=== PATIENT | female | born 1950 | race Caucasian/White ===

== ENCOUNTER → 2020-03-03 | Outpatient (CLI) | payer MEDICARE ==
--- NOTE | 2020-03-03 14:00 | ECHOF ---
Referral Reason:Cardiac Murmur, RO1.1 MEASUREMENTS -------- HEIGHT: 157.5 cm WEIGHT: 102.1 kg BP: 131/67 RVIDd: 2.8 cm (< 3.3) IVSd: 1.1 cm (0.6 - 1.1) LVIDd: 4.1 cm (3.9 - 5.3) LVPWd: 1.1 cm (0.6 - 1.1) IVSs: 1.5 cm LVIDs: 2.3 cm LVPWs: 1.5 cm LA Diam: 3.3 cm (2.7 - 3.8) LAESV Index (A-L): 24.21 ml/m Ao Diam: 3.0 cm (2.0 - 3.7) AV Cusp: 1.7 cm (1.5 - 2.6) MV EXCURSION: 9.718 mm (> 18.000) MV EF SLOPE: 47 mm/s (70 - 150) EPSS: 0.6 cm MV E Thierry: 1.28 m/s MV DecT: 346 ms MV A Thierry: 1.62 m/s MV E/A Ratio: 0.79 AV maxP.60 mmHg AV meanP.10 mmHg RAP: 5.00 mmHg RVSP: 36.41 mmHg FINDINGS -------- Sinus rhythm. This was a technically adequate study. The left ventricular size is normal. There is borderline concentric left ventricular hypertrophy. Overall left ventricular systolic function is normal with, an EF between 60 - 65 %. The right ventricle is normal in size. The global wall thickness of the right ventricle is mildly e nlarged. Normal LA size by volume 22+/-6 ml/m2. The right atrium is normal in size. Aortic valve is trileaflet and is mildly thickened. There is mild aortic stenosis present. Peak/m toma gradient across the Aortic Valve is 21.60mmHg / 12.10mmHg. The mitral valve leaflets are mildly thickened. Mild mitral annular calcification present. The p eak and mean MV gradients are 10.71mmHg 3.19mmHg as measured by doppler. Mild tricuspid regurgitation present. There is mild pulmonary hypertension. The right ventricular systolic pressure, as measured by Doppler, is 36.41mmHg. Trace/mild (physiologic) pulmonic regurgitation. The aortic root size is normal. Normal inferior vena cava with normal inspiratory collapse consistent with estimated right atrial pre ssure of 5 mmHg. There is no pericardial effusion. CONCLUSIONS -------- 1. The left ventricular size is normal. 2. There is borderline concentric left ventricular hypertrophy. 3. Overall left ventricular systolic function is normal with, an EF between 60 - 65 %. 4. The right ventricle is normal in size. 5. The global wall thickness of the right ventricle is mildly enlarged. 6. Normal LA size by volume 22+/-6 ml/m2. 7. Aortic valve is trileaflet and is mildly thickened. 8. There is mild aortic stenosis present. 9. Peak/mean gradient across the Aortic Valve is 21.60mmHg / 12.10mmHg. 10. The mitral valve leaflets are mildly thickened. 11. Mild mitral annular calcification present. 12. The peak and mean MV gradients are 10.71mmHg 3.19mmHg as measured by doppler. 13. Mild tricuspid regurgitation present. 14. There is mild pulmonary hypertension. 15. The right ventricular systolic pressure, as measured by Doppler, is 36.41mmHg. 16. Trace/mild (physiologic) pulmonic regurgitation. 17. There is no pericardial effusion. 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
== END | disposition home or self-care (01) ==
LOC: RADECHMAIN 11:25
PROVIDERS: ATTEND Family Medicine
DX: I27.20 Pulmonary hypertension, unspecified (principal); I37.1 Nonrheumatic pulmonary valve insufficiency; I08.3 Combined rheumatic disorders of mitral, aortic and tricuspid valves
CPT/HCPCS: 93306

== ENCOUNTER 2023-09-16 18:55 | Inpatient (IN) | payer MEDICARE ==
[2023-09-16] MEDS: SODIUM CHLORIDE 0.9% 1,000 ML IV STA (19:50)
[2023-09-16 20:00] LABS: Basophils % (A) 0 %; Eosinophils % (A) 0 %; HCT 45.8 % (34.0-46.0); HGB 14.8 gm/dL (11.4-16.0); Hypochromasia Slight; Lymphocytes # (A) 0.9 k/uL (1.0-4.8); Lymphocytes % (A) 6 %; MCH 32.8 pg (25.0-35.0); MCHC 32.4 g/dL (31.0-37.0); MCV 101.3 fL (80.0-100.0); Mean Platelet Volume 8.3; Monocytes # (A) 0.7 k/uL (0-1.0); Monocytes % (A) 5 %; Neutrophils % (A) 87 %; Platelet Count 236 k/uL (150-450); RBC 4.52 m/uL (3.80-5.40); RDW 12.8 % (11.5-15.5); WBC 13.7 k/uL (3.8-10.6)
[2023-09-16 20:14] LABS: ALT 50 U/L (4-34); African American GFR (CKD) >90 (>60 ml/min/1.73 sqM); Albumin 4.4 g/dL (3.5-5.0); Anion Gap 8 mmol/L; Blood Urea Nitrogen 16 mg/dL (7-17); Calcium 9.7 mg/dL (8.4-10.2); Carbon Dioxide 23 mmol/L (22-30); Chloride 111 mmol/L (98-107); Glucose 145 mg/dL (74-99); Non-African American GFR(CKD) 86 (>60 ml/min/1.73 sqM); Sodium 142 mmol/L (137-145); Total Bilirubin 2.5 mg/dL (0.2-1.3); Total Protein 6.9 g/dL (6.3-8.2)
[2023-09-16 20:23] LABS: INR 1.1 (<1.2); Prothrombin Time 11.5 sec (10.0-12.5)
[2023-09-16 20:25] LABS: AST 426 U/L (14-36); Alkaline Phosphatase 57 U/L (38-126); Phosphorus 2.2 mg/dL (2.5-4.5); Potassium 3.3 mmol/L (3.5-5.1)
[2023-09-16] MEDS ORDERED: Potassium Replacement Protocol 1 EACH MISC MISCELLANE PRN (20:36)
--- NOTE | 2023-09-16 20:41 | XR ---
EXAMINATION TYPE: XR chest 2V DATE OF EXAM: 09/16/2023 8:29 PM CLINICAL INDICATION:Female, 73 years old with history of Weakness; [facility] COMPARISON: None. TECHNIQUE: XR chest 2V Frontal and lateral views of the chest. FINDINGS: Right hemidiaphragm is smooth in the right costophrenic angle is sharp. Left hemidiaphragm is smooth left costophrenic angle is sharp. Lungs/Pleura: There is no evidence of pleural effusion, focal consolidation, or pneumothorax. Pulmonary vascularity: Unremarkable. Heart/mediastinum: Cardiomediastinal silhouette is unremarkable. Musculoskeletal: No acute osseous pathology. Other findings: None Lines/Tubes: IMPRESSION: No acute cardiopulmonary disease/process.
[2023-09-16] MEDS: POTASSIUM CHLORIDE ER 20 MEQ TAB.ER PO SCH (20:49)
[2023-09-16] MEDS ORDERED: Phosphorus Replacement Protoco 1 EACH MISC MISCELLANE PRN (20:57)
[2023-09-16 21:22] LABS: Creatine Kinase 25496 U/L (30-135)
--- NOTE | 2023-09-16 21:32 | XR ---
EXAMINATION TYPE: XR knee complete bilateral DATE OF EXAM: 09/16/2023 8:29 PM CLINICAL INDICATION:Female, 73 years old with history of fall; [facility]. Initial encounter. COMPARISON: None. TECHNIQUE: XR knee complete bilateral; examined in Frontal, lateral and oblique projections. FINDINGS: No evidence of any acute osseous pathology, soft tissue swelling, or joint effusion is no jonathan. IMPRESSION: 1. No acute osseous pathology. 2. No significant osteoarthritic changes.
[2023-09-16] MEDS: POTAS-SOD-PHOS 278-164-250 MG 1 EACH PACKET PO ONE (22:06)
[2023-09-16] MEDS: SODIUM CHLORIDE 0.9% 1,000 ML IV SCH (22:08)
[2023-09-16] MEDS: SODIUM CHLORIDE 0.9% 1,000 ML IV ONE (22:09)
[2023-09-16] MEDS ORDERED: NALOXONE 0.4 MG/ML 1 ML VIAL IV PRN (22:15)
--- NOTE | 2023-09-16 22:18 | ED ---
General Adult HPI - General Chief complaint: Fall Stated complaint: Fall, isma, nausea, vomiting, general weakness Time Seen by Provider: 09/16/23 19:23 Source: patient Mode of arrival: wheelchair Limitations: no limitations - History of Present Illness Initial comments: 73-year-old female with history of hypertension and hyperlipidemia presenting with chief complaint of generalized weakness. She is accompanied by her son. She reports that she got on her hands and knees while doing tasks around the house and then was unable to get up on her own. Her was also unable to get her up on his own. She was on the ground for approximately 20 hours before her son was contacted who came to the home and got her up. Since then her legs have felt weak, she did fall forward while in the parking lot, she fell onto her knees and did not hit her head. No loss of consciousness or blood thinners. She also admits to dizziness. She denies any chest pain or difficulty breathing. - Related Data Home Medications Medication Instructions Recorded Confirmed Aspirin EC [Ecotrin Low Dose] 81 mg PO DAILY 09/17/23 09/17/23 Atorvastatin [Lipitor] 40 mg PO HS 09/17/23 09/17/23 diphenhydrAMINE HCL [Benadryl] 50 mg PO BID 09/17/23 09/17/23 Previous Rx's Medication Instructions Recorded Losartan [Cozaar] 25 mg PO DAILY #90 tab 09/19/23 Metoprolol Tartrate [Lopressor] 12.5 mg PO BID #90 tab 09/19/23 Allergies Allergy/AdvReac Type Severity Reaction Status Date / Time Beef Containing Products AdvReac Diarrhea Verified 09/17/23 09:38 [Beef] Review of Systems ROS Statement: Those systems with pertinent positive or pertinent negative responses have been documented in the HPI. ROS Other: All systems not noted in ROS Statement are negative. Past Medical History Past Medical History: Hyperlipidemia, Hypertension History of Any Multi-Drug Resistant Organisms: None Reported Past Surgical History: Tonsillectomy Past Psychological History: No Psychological Hx Reported Smoking Status: Never smoker Past Alcohol Use History: Occasional Past Drug Use History: None Reported General Exam Limitations: no limitations General appearance: alert, in no apparent distress Head exam: Present: atraumatic, normocephalic Eye exam: Present: normal appearance, EOMI Neck exam: Present: normal inspection. Absent: meningismus Respiratory exam: Present: normal lung sounds bilaterally. Absent: respiratory distress, wheezes, rales, rhonchi, stridor Cardiovascular Exam: Present: regular rate, normal rhythm, normal heart sounds. Absent: systolic murmur, diastolic murmur, rubs, gallop, clicks Neurological exam: Present: alert, oriented X3 Psychiatric exam: Present: normal affect, normal mood Skin exam: Present: normal color Course Vital Signs 09/16/23 09/16/23 09/16/23 19:03 19:56 20:00 Temperature 97.8 F Pulse Rate 100 89 97 Respiratory 20 16 18 Rate Blood Pressure 109/68 117/71 117/71 O2 Sat by Pulse 95 93 L 95 Oximetry 09/16/23 09/16/23 09/16/23 21:00 22:00 23:00 Temperature Pulse Rate 98 95 94 Respiratory 16 16 18 Rate Blood Pressure 127/73 138/87 134/89 O2 Sat by Pulse 95 94 L 94 L Oximetry 09/17/23 09/17/23 09/17/23 00:00 01:00 02:00 Temperature Pulse Rate 90 90 88 Respiratory 16 16 16 Rate Blood Pressure 144/82 142/92 135/80 O2 Sat by Pulse 94 L 95 93 L Oximetry 09/17/23 09/17/23 09/17/23 03:00 03:52 04:30 Temperature 97.7 F Pulse Rate 86 Respiratory 18 16 Rate Blood Pressure 106/61 O2 Sat by Pulse 93 L Oximetry 09/17/23 09/17/23 09/17/23 06:53 09:44 11:17 Temperature 98.1 F Pulse Rate 82 78 77 Respiratory 18 18 18 Rate Blood Pressure 129/87 136/52 O2 Sat by Pulse 94 L 94 L 95 Oximetry 09/17/23 12:14 Temperature 98 F Pulse Rate 78 Respiratory 18 Rate Blood Pressure 140/81 O2 Sat by Pulse 96 Oximetry Medical Decision Making - Medical Decision Making Was pt. sent in by a medical professional or institution (, PA, PREPARATION ROOM WORKER, urgent care, hospital, or long-term...) When possible be specific @ -No Did you speak to anyone other than the patient for history (EMS, parent, family, police, friend...)? What history was obtained from this source @ -History supplemented by the patient's son Did you review nursing and triage notes (agree or disagree)? Why? @ -I reviewed and agree with nursing and triage notes Were old charts reviewed (outside hosp., previous admission, EMS record, old EKG, old radiological studies, urgent care reports/EKG's, long-term records)? Report findings @ -No old charts were reviewed Differential Diagnosis (chest pain, altered mental status, abdominal pain women, abdominal pain men, vaginal bleeding, weakness, fever, dyspnea, syncope, headache, dizziness, GI bleed, back pain, seizure, CVA, palpatations, mental health, musculoskeletal)? @ -MDM Differential Weakness: Rhabdomyolysis, hypoglycemia, shock, sepsis, hyponatremia, anemia, infection, IA, ETOH, adverse medicine reaction, overdose, stroke. ... This is not meant to be an all-inclusive list EKG interpreted by me (3pts min.). @ -EKG shows sinus rhythm ventricular rate 95. WI interval 128. QRS 133. QT 365. QTc 418 X-rays interpreted by me (1pt min.). @ -Chest x-ray shows no acute process Knee x-ray shows no acute osseous pathology. No significant osteoarthritic changes CT interpreted by me (1pt min.). @ -None done U/S interpreted by me (1pt. min.). @ -None done What testing was considered but not performed or refused? (CT, X-rays, U/S, labs)? Why? @ -None What meds were considered but not given or refused? Why? @ -None Did you discuss the management of the patient with other professionals (pr ofessionals i.e. , PA, PREPARATION ROOM WORKER, lab, RT, psych nurse, social welfare research worker, club manager, teacher, safety instruction police officer, rn case management)? Give summary @ -I spoke with Dr. Sanchez, accepted admission Was smoking cessation discussed for >3mins.? @ -No Was critical care preformed (if so, how long)? @ -No Were there social determinants of health that impacted care today? How? (Homelessness, low income, unemployed, alcoholism, drug addiction, transportation, low edu. Level, literacy, decrease access to med. care, long term, rehab)? @ -No Was there de-escalation of care discussed even if they declined (Discuss DNR or withdrawal of care, Hospice)? DNR status @ -No What co-morbidities impacted this encounter? (DM, HTN, Smoking, COPD, CAD, Cancer, CVA, ARF, Chemo, Hep., AIDS, mental health diagnosis, sleep apnea, morbid obesity)? @ -Hypertension and hyperlipidemia Was patient admitted / discharged? Hospital course, mention meds given and route, prescriptions, significant lab abnormalities, going to OR and other pertinent info. @ -73-year-old female presenting with chief complaint of weakness after being down on the ground for 20 hours. Patient had lowered herself to the ground to do some tasks around the house but was unable to get back up. History and physical exam are conducted. Creatinine kinase 25,496. Lactic acid 4.1. Troponin 1.700. Patient is having no chest pain and EKG shows no ST deviation, likely secondary to rhabdomyolysis. Bilirubin 2.5 AST 426 ALT 50. Urine shows 1 RBC. GFR is 86, BUN 16 creatinine 0.69. Potassium 3.3. Patient was given 1 L IV fluid bolus and started on lactic Ringer's at 200 mL/h. She is also given oral potassium replacement. She was given pain medication. She will require admission for rhabdomyolysis, she is agreeable with this plan. I discussed this case with my attending Dr. Carlos Undiagnosed new problem with uncertain prognosis? @ -No Drug Therapy requiring intensive monitoring for toxicity (Heparin, Nitro, Insulin, Cardizem)? @ -No Were any procedures done? @ -No Diagnosis/symptom? @ -Rhabdomyolysis Acute, or Chronic, or Acute on Chronic? @ -Acute Uncomplicated (without systemic symptoms) or Complicated (systemic symptoms)? @ -Complicated Side effects of treatment? @ -No Exacerbation, Progression, or Severe Exacerbation? @ -No Poses a threat to life or bodily function? How? (Chest pain, USA, IA, pneumonia, PE, COPD, DKA, ARF, appy, cholecystitis, CVA, Diverticulitis, Homicidal, Suicidal, threat to staff... and all critical care pts) @ -Yes - Lab Data Result diagrams: 09/19/23 06:47 09/19/23 06:47 Lab Results 09/16/23 09/16/23 09/16/23 Range/Units 01:02 19:44 19:44 WBC 13.7 H (3.8-10.6) k/uL RBC 4.52 (3.80-5.40) m/uL Hgb 14.8 (11.4-16.0) gm/dL Hct 45.8 (34.0-46.0) % MCV 101.3 H (80.0-100.0) fL MCH 32.8 (25.0-35.0) pg MCHC 32.4 (31.0-37.0) g/dL RDW 12.8 (11.5-15.5) % Plt Count 236 (150-450) k/uL MPV 8.3 Neutrophils % 87 % Lymphocytes % 6 % Monocytes % 5 % Eosinophils % 0 % Basophils % 0 % Neutrophils # 12.0 H (1.3-7.7) k/uL Lymphocytes # 0.9 L (1.0-4.8) k/uL Monocytes # 0.7 (0-1.0) k/uL Eosinophils # 0.0 (0-0.7) k/uL Basophils # 0.0 (0-0.2) k/uL Hypochromasia Slight Macrocytosis PT 11.5 (10.0-12.5) sec INR 1.1 (<1.2) APTT 22.0 (22.0-30.0) sec Sodium (137-145) mmol/L Potassium (3.5-5.1) mmol/L Chloride (98-107) mmol/L Carbon Dioxide (22-30) mmol/L Anion Gap mmol/L BUN (7-17) mg/dL Creatinine (0.52-1.04) mg/dL Est GFR (CKD-EPI)AfAm (>60 ml/min/1.73 sqM) Est GFR (CKD-EPI)NonAf (>60 ml/min/1.73 sqM) Glucose (74-99) mg/dL Lactic Ac Sepsis Rflx Plasma Lactic Acid Maik (0.7-2.0) mmol/L Calcium (8.4-10.2) mg/dL Phosphorus (2.5-4.5) mg/dL Magnesium (1.6-2.3) mg/dL Total Bilirubin (0.2-1.3) mg/dL AST (14-36) U/L ALT (4-34) U/L Alkaline Phosphatase (38-126) U/L Creatine Kinase (30-135) U/L Total Creatine Kinase (30-223) u/L CK-MM (CK-3) (96.7-100.0) % CK-MB (CK-2) (0.0-3.3) % CK-BB (CK-1) (0.0) % Troponin I (0.000-0.034) ng/mL Total Protein (6.3-8.2) g/dL Albumin (3.5-5.0) g/dL Urine Color Yellow Urine Appearance Cloudy H (Clear) Urine pH 6.0 (5.0-8.0) Ur Specific [place] 1.029 (1.001-1.035) Urine Protein 1+ H (Negative) Urine Glucose (UA) Trace H (Negative) Urine Ketones Trace H (Negative) Urine Blood Large H (Negative) Urine Nitrite Negative (Negative) Urine Bilirubin Negative (Negative) Urine Urobilinogen <2.0 (<2.0) mg/dL Ur Leukocyte Esterase Negative (Negative) Urine RBC 1 (0-5) /hpf Urine WBC 4 (0-5) /hpf Ur Squamous Epith Cells 8 H (0-4) /hpf Urine Bacteria Rare H (None) /hpf Hyaline Casts 3 H (0-2) /lpf Urine Mucus Few H (None) /hpf 09/16/23 09/16/23 09/16/23 Range/Units 19:44 19:44 19:44 WBC (3.8-10.6) k/uL RBC (3.80-5.40) m/uL Hgb (11.4-16.0) gm/dL Hct (34.0-46.0) % MCV (80.0-100.0) fL MCH (25.0-35.0) pg MCHC (31.0-37.0) g/dL RDW (11.5-15.5) % Plt Count (150-450) k/uL MPV Neutrophils % % Lymphocytes % % Monocytes % % Eosinophils % % Basophils % % Neutrophils # (1.3-7.7) k/uL Lymphocytes # (1.0-4.8) k/uL Monocytes # (0-1.0) k/uL Eosinophils # (0-0.7) k/uL Basophils # (0-0.2) k/uL Hypochromasia Macrocytosis PT (10.0-12.5) sec INR (<1.2) APTT (22.0-30.0) sec Sodium 142 (137-145) mmol/L Potassium 3.3 L (3.5-5.1) mmol/L Chloride 111 H (98-107) mmol/L Carbon Dioxide 23 (22-30) mmol/L Anion Gap 8 mmol/L BUN 16 (7-17) mg/dL Creatinine 0.69 (0.52-1.04) mg/dL Est GFR (CKD-EPI)AfAm >90 (>60 ml/min/1.73 sqM) Est GFR (CKD-EPI)NonAf 86 (>60 ml/min/1.73 sqM) Glucose 145 H (74-99) mg/dL Lactic Ac Sepsis Rflx Plasma Lactic Acid Maik 4.1 H* (0.7-2.0) mmol/L Calcium 9.7 (8.4-10.2) mg/dL Phosphorus 2.2 L (2.5-4.5) mg/dL Magnesium 2.0 (1.6-2.3) mg/dL Total Bilirubin 2.5 H (0.2-1.3) mg/dL AST 426 H (14-36) U/L ALT 50 H (4-34) U/L Alkaline Phosphatase 57 (38-126) U/L Creatine Kinase 94712 H* (30-135) U/L Total Creatine Kinase (30-223) u/L CK-MM (CK-3) (96.7-100.0) % CK-MB (CK-2) (0.0-3.3) % CK-BB (CK-1) (0.0) % Troponin I 1.700 H* (0.000-0.034) ng/mL Total Protein 6.9 (6.3-8.2) g/dL Albumin 4.4 (3.5-5.0) g/dL Urine Color Urine Appearance (Clear) Urine pH (5.0-8.0) Ur Specific [place] (1.001-1.035) Urine Protein (Negative) Urine Glucose (UA) (Negative) Urine Ketones (Negative) Urine Blood (Negative) Urine Nitrite (Negative) Urine Bilirubin (Negative) Urine Urobilinogen (<2.0) mg/dL Ur Leukocyte Esterase (Negative) Urine RBC (0-5) /hpf Urine WBC (0-5) /hpf Ur Squamous Epith Cells (0-4) /hpf Urine Bacteria (None) /hpf Hyaline Casts (0-2) /lpf Urine Mucus (None) /hpf 09/16/23 09/16/23 09/17/23 Range/Units 21:21 23:00 00:16 WBC (3.8-10.6) k/uL RBC (3.80-5.40) m/uL Hgb (11.4-16.0) gm/dL Hct (34.0-46.0) % MCV (80.0-100.0) fL MCH (25.0-35.0) pg MCHC (31.0-37.0) g/dL RDW (11.5-15.5) % Plt Count (150-450) k/uL MPV Neutrophils % % Lymphocytes % % Monocytes % % Eosinophils % % Basophils % % Neutrophils # (1.3-7.7) k/uL Lymphocytes # (1.0-4.8) k/uL Monocytes # (0-1.0) k/uL Eosinophils # (0-0.7) k/uL Basophils # (0-0.2) k/uL Hypochromasia Macrocytosis PT (10.0-12.5) sec INR (<1.2) APTT (22.0-30.0) sec Sodium (137-145) mmol/L Potassium (3.5-5.1) mmol/L Chloride (98-107) mmol/L Carbon Dioxide (22-30) mmol/L Anion Gap mmol/L BUN (7-17) mg/dL Creatinine (0.52-1.04) mg/dL Est GFR (CKD-EPI)AfAm (>60 ml/min/1.73 sqM) Est GFR (CKD-EPI)NonAf (>60 ml/min/1.73 sqM) Glucose (74-99) mg/dL Lactic Ac Sepsis Rflx Y Plasma Lactic Acid Maik (0.7-2.0) mmol/L Calcium (8.4-10.2) mg/dL Phosphorus (2.5-4.5) mg/dL Magnesium (1.6-2.3) mg/dL Total Bilirubin (0.2-1.3) mg/dL AST (14-36) U/L ALT (4-34) U/L Alkaline Phosphatase (38-126) U/L Creatine Kinase 34759 H* (30-135) U/L Total Creatine Kinase (30-223) u/L CK-MM (CK-3) (96.7-100.0) % CK-MB (CK-2) (0.0-3.3) % CK-BB (CK-1) (0.0) % Troponin I 1.580 H* (0.000-0.034) ng/mL Total Protein (6.3-8.2) g/dL Albumin (3.5-5.0) g/dL Urine Color Urine Appearance (Clear) Urine pH (5.0-8.0) Ur Specific [place] (1.001-1.035) Urine Protein (Negative) Urine Glucose (UA) (Negative) Urine Ketones (Negative) Urine Blood (Negative) Urine Nitrite (Negative) Urine Bilirubin (Negative) Urine Urobilinogen (<2.0) mg/dL Ur Leukocyte Esterase (Negative) Urine RBC (0-5) /hpf Urine WBC (0-5) /hpf Ur Squamous Epith Cells (0-4) /hpf Urine Bacteria (None) /hpf Hyaline Casts (0-2) /lpf Urine Mucus (None) /hpf 09/17/23 09/17/23 09/17/23 Range/Units 00:16 00:16 06:48 WBC (3.8-10.6) k/uL RBC (3.80-5.40) m/uL Hgb (11.4-16.0) gm/dL Hct (34.0-46.0) % MCV (80.0-100.0) fL MCH (25.0-35.0) pg MCHC (31.0-37.0) g/dL RDW (11.5-15.5) % Plt Count (150-450) k/uL MPV Neutrophils % % Lymphocytes % % Monocytes % % Eosinophils % % Basophils % % Neutrophils # (1.3-7.7) k/uL Lymphocytes # (1.0-4.8) k/uL Monocytes # (0-1.0) k/uL Eosinophils # (0-0.7) k/uL Basophils # (0-0.2) k/uL Hypochromasia Macrocytosis PT (10.0-12.5) sec INR (<1.2) APTT (22.0-30.0) sec Sodium 140 (137-145) mmol/L Potassium 3.5 (3.5-5.1) mmol/L Chloride 113 H (98-107) mmol/L Carbon Dioxide 25 (22-30) mmol/L Anion Gap 2 mmol/L BUN 16 (7-17) mg/dL Creatinine 0.51 L (0.52-1.04) mg/dL Est GFR (CKD-EPI)AfAm >90 (>60 ml/min/1.73 sqM) Est GFR (CKD-EPI)NonAf >90 (>60 ml/min/1.73 sqM) Glucose 125 H (74-99) mg/dL Lactic Ac Sepsis Rflx Plasma Lactic Acid Maik 1.3 (0.7-2.0) mmol/L Calcium 8.4 (8.4-10.2) mg/dL Phosphorus 3.3 (2.5-4.5) mg/dL Magnesium (1.6-2.3) mg/dL Total Bilirubin 1.7 H (0.2-1.3) mg/dL AST 315 H (14-36) U/L ALT 52 H (4-34) U/L Alkaline Phosphatase 45 (38-126) U/L Creatine Kinase 69001 H* (30-135) U/L Total Creatine Kinase (30-223) u/L CK-MM (CK-3) (96.7-100.0) % CK-MB (CK-2) (0.0-3.3) % CK-BB (CK-1) (0.0) % Troponin I (0.000-0.034) ng/mL Total Protein 5.5 L (6.3-8.2) g/dL Albumin 3.3 L (3.5-5.0) g/dL Urine Color Urine Appearance (Clear) Urine pH (5.0-8.0) Ur Specific [place] (1.001-1.035) Urine Protein (Negative) Urine Glucose (UA) (Negative) Urine Ketones (Negative) Urine Blood (Negative) Urine Nitrite (Negative) Urine Bilirubin (Negative) Urine Urobilinogen (<2.0) mg/dL Ur Leukocyte Esterase (Negative) Urine RBC (0-5) /hpf Urine WBC (0-5) /hpf Ur Squamous Epith Cells (0-4) /hpf Urine Bacteria (None) /hpf Hyaline Casts (0-2) /lpf Urine Mucus (None) /hpf 09/17/23 09/18/23 09/18/23 Range/Units 06:48 06:24 06:24 WBC 14.1 H 9.6 (3.8-10.6) k/uL RBC 3.94 3.63 L (3.80-5.40) m/uL Hgb 12.9 12.1 (11.4-16.0) gm/dL Hct 41.9 37.6 (34.0-46.0) % MCV 106.6 H D 103.5 H (80.0-100.0) fL MCH 32.8 33.2 (25.0-35.0) pg MCHC 30.8 L 32.0 (31.0-37.0) g/dL RDW 12.5 12.6 (11.5-15.5) % Plt Count 211 190 (150-450) k/uL MPV 8.3 9.0 Neutrophils % % Lymphocytes % % Monocytes % % Eosinophils % % Basophils % % Neutrophils # (1.3-7.7) k/uL Lymphocytes # (1.0-4.8) k/uL Monocytes # (0-1.0) k/uL Eosinophils # (0-0.7) k/uL Basophils # (0-0.2) k/uL Hypochromasia Marked Moderate Macrocytosis Moderate Slight PT (10.0-12.5) sec INR (<1.2) APTT (22.0-30.0) sec Sodium (137-145) mmol/L Potassium (3.5-5.1) mmol/L Chloride (98-107) mmol/L Carbon Dioxide (22-30) mmol/L Anion Gap mmol/L BUN (7-17) mg/dL Creatinine (0.52-1.04) mg/dL Est GFR (CKD-EPI)AfAm (>60 ml/min/1.73 sqM) Est GFR (CKD-EPI)NonAf (>60 ml/min/1.73 sqM) Glucose (74-99) mg/dL Lactic Ac Sepsis Rflx Plasma Lactic Acid Maik (0.7-2.0) mmol/L Calcium (8.4-10.2) mg/dL Phosphorus (2.5-4.5) mg/dL Magnesium (1.6-2.3) mg/dL Total Bilirubin (0.2-1.3) mg/dL AST (14-36) U/L ALT (4-34) U/L Alkaline Phosphatase (38-126) U/L Creatine Kinase (30-135) U/L Total Creatine Kinase 4740 H (30-223) u/L CK-MM (CK-3) 100.0 (96.7-100.0) % CK-MB (CK-2) 0.0 (0.0-3.3) % CK-BB (CK-1) 0.0 (0.0) % Troponin I (0.000-0.034) ng/mL Total Protein (6.3-8.2) g/dL Albumin (3.5-5.0) g/dL Urine Color Urine Appearance (Clear) Urine pH (5.0-8.0) Ur Specific [place] (1.001-1.035) Urine Protein (Negative) Urine Glucose (UA) (Negative) Urine Ketones (Negative) Urine Blood (Negative) Urine Nitrite (Negative) Urine Bilirubin (Negative) Urine Urobilinogen (<2.0) mg/dL Ur Leukocyte Esterase (Negative) Urine RBC (0-5) /hpf Urine WBC (0-5) /hpf Ur Squamous Epith Cells (0-4) /hpf Urine Bacteria (None) /hpf Hyaline Casts (0-2) /lpf Urine Mucus (None) /hpf 09/18/23 Range/Units 06:24 WBC (3.8-10.6) k/uL RBC (3.80-5.40) m/uL Hgb (11.4-16.0) gm/dL Hct (34.0-46.0) % MCV (80.0-100.0) fL MCH (25.0-35.0) pg MCHC (31.0-37.0) g/dL RDW (11.5-15.5) % Plt Count (150-450) k/uL MPV Neutrophils % % Lymphocytes % % Monocytes % % Eosinophils % % Basophils % % Neutrophils # (1.3-7.7) k/uL Lymphocytes # (1.0-4.8) k/uL Monocytes # (0-1.0) k/uL Eosinophils # (0-0.7) k/uL Basophils # (0-0.2) k/uL Hypochromasia Macrocytosis PT (10.0-12.5) sec INR (<1.2) APTT (22.0-30.0) sec Sodium 139 (137-145) mmol/L Potassium 3.5 (3.5-5.1) mmol/L Chloride 108 H (98-107) mmol/L Carbon Dioxide 26 (22-30) mmol/L Anion Gap 5 mmol/L BUN 15 (7-17) mg/dL Creatinine 0.47 L (0.52-1.04) mg/dL Est GFR (CKD-EPI)AfAm >90 (>60 ml/min/1.73 sqM) Est GFR (CKD-EPI)NonAf >90 (>60 ml/min/1.73 sqM) Glucose 98 (74-99) mg/dL Lactic Ac Sepsis Rflx Plasma Lactic Acid Maik (0.7-2.0) mmol/L Calcium 8.6 (8.4-10.2) mg/dL Phosphorus (2.5-4.5) mg/dL Magnesium (1.6-2.3) mg/dL Total Bilirubin (0.2-1.3) mg/dL AST (14-36) U/L ALT (4-34) U/L Alkaline Phosphatase (38-126) U/L Creatine Kinase (30-135) U/L Total Creatine Kinase (30-223) u/L CK-MM (CK-3) (96.7-100.0) % CK-MB (CK-2) (0.0-3.3) % CK-BB (CK-1) (0.0) % Troponin I (0.000-0.034) ng/mL Total Protein (6.3-8.2) g/dL Albumin (3.5-5.0) g/dL Urine Color Urine Appearance (Clear) Urine pH (5.0-8.0) Ur Specific [place] (1.001-1.035) Urine Protein (Negative) Urine Glucose (UA) (Negative) Urine Ketones (Negative) Urine Blood (Negative) Urine Nitrite (Negative) Urine Bilirubin (Negative) Urine Urobilinogen (<2.0) mg/dL Ur Leukocyte Esterase (Negative) Urine RBC (0-5) /hpf Urine WBC (0-5) /hpf Ur Squamous Epith Cells (0-4) /hpf Urine Bacteria (None) /hpf Hyaline Casts (0-2) /lpf Urine Mucus (None) /hpf Disposition Clinical Impression: Rhabdomyolysis Disposition: ADMITTED IP TO THIS HOSP Condition: Stable Time of Disposition: 22:18
[2023-09-16] MEDS: ACETAMINOPHEN TAB 500 MG TAB PO STA (22:36)
[2023-09-16] MEDS: LACTATED RINGERS 1,000 ML IV SCH (23:34)
[2023-09-17] MEDS: MORPHINE SULFATE 2 MG/ML SYRINGE IVP STA (00:04)
[2023-09-17 01:29] LABS: Appearance,Urine Cloudy (Clear); Bacteria,Urine Rare /hpf; Bilirubin,Urine Negative (Negative); Blood,Urine Large (Negative); Color,Urine Yellow; Glucose,Urine (UA) Trace (Negative); Hyaline Casts,Urine 3 /lpf (0-2); Ketones,Urine Trace (Negative); Leukocyte Esterase,Urine Negative (Negative); Mucus,Urine Few /hpf; Nitrite,Urine Negative (Negative); Protein,Urine 1+ (Negative); RBC,Urine 1 /hpf (0-5); Specific Gravity,Urine 1.029 (1.001-1.035); Squamous Epithelial Cell,Urine 8 /hpf (0-4); Urobilinogen,Urine <2.0 mg/dL (<2.0); WBC,Urine 4 /hpf (0-5)
--- NOTE | 2023-09-17 01:40 | P.HPIM ---
History of Present Illness H&P Date: 09/16/23 Patient is a 73-year-old female with a PMH of hypertension hyperlipidemia who lives at home with her was brought in via EMS for generalized weakness and fall. The patient reports that she was doing some organizing in her home when she got down on the floor to pick something up but then was unable to stand back up on Monday evening. Patient was subsequently unable to fully stand up and was helped up into a low-lying chair for few hours by her . She spent the night in the chair and was not able to stand back up fully the next morning. The patient's son was called in by her who noticed that the patient appeared dehydrated and weak and subsequently activated EMS. The patient reports that she spent a large portion of the 24 hours on the floor. She however denies experiencing any head trauma or loss of consciousness. Also denies chest pain, shortness of breath, nausea, vomiting, abdominal pain, diarrhea. Does report diffuse achiness at the time of interview. Chest x-ray in the emergency room was unremarkable with bilateral knee x-rays also unremarkable. Laboratory evaluation was remarkable for creatinine kinase 25,496, troponin 1.7, lactic acid 4.1, total bilirubin 2.5, AST 426, ALT 50, BUN 16, creatinine 0.69, with potassium 3.3, and WBC count 13.7 with MCV 101.3. ED documentation reviewed and case discussed with ED provider. Review of systems: Pertinent positives and negatives as discussed in HPI, a complete review of systems was performed and all other systems are negative. Physical examination: Vital signs reviewed General: non toxic, no distress, appears at stated age, morbidly obese Derm: no unusual rashes/lesions, warm Head: atraumatic, normocephalic, symmetric Eyes: EOMI, no lid lag, anicteric sclera, pupils equal round reactive to light ENT: Nose and ears atraumatic Neck: No cervical lymphadenopathy, trachea midline, supple Mouth: no lip lesion, mucus membranes moist Cardiovascular: S1S2 reg, no murmur, positive dorsalis pedis pulse bilateral, no edema Lungs: CTA bilateral, no rhonchi, no rales, no accessory muscle use Abdominal: soft, nontender to palpation, no guarding Ext: muscle strength 3 out of 5 of bilateral LEs and 4/5 of nery UEs grossly, no gross muscle atrophy, no contractures Neuro: CN II-XI grossly intact, no gross focal neuro deficits Psych: Alert, oriented, appropriate affect Assessment: Rhabdomyolysis Elevated troponin, suspect type II DC, patient currently denying chest discomfort or shortness of breath Lactic acidosis Hypokalemia Leukocytosis, likely due to acute stressor Debility Transaminitis, again suspect due to ongoing acute illness with rhabdomyolysis Imaging: Chest x-ray in the emergency room was unremarkable with bilateral knee x-rays also unremarkable. Data Review: Laboratory evaluation was remarkable for creatinine kinase 25,496, troponin 1.7, lactic acid 4.1, total bilirubin 2.5, AST 426, ALT 50, BUN 16, creatinine 0.69, with potassium 3.3, and WBC count 13.7 with MCV 101.3. Plan: Continue with normal saline IV fluids 130 cc/h Monitor CK levels Obtain EKG Cardiac monitoring Cardiology consulted Replace potassium and monitor for improvement Monitor WBC levels Continue IV fluids and trend lactate for resolution Trend LFTs Obtain RUQ US Resume home medications once reconciled DVT prophylaxis: Lovenox subcu The patient is admitted with an anticipated fewer than 2 midnight stay for evaluation of rhabdo CODE STATUS: Full Code Discussed with: Patient Anticipated discharge place: Home Past Medical History Past Medical History: Hyperlipidemia, Hypertension History of Any Multi-Drug Resistant Organisms: None Reported Past Surgical History: Tonsillectomy Past Psychological History: No Psychological Hx Reported Smoking Status: Never smoker Past Alcohol Use History: Occasional Past Drug Use History: None Reported Medications and Allergies Allergies Allergy/AdvReac Type Severity Reaction Status Date / Time No Known Allergies Allergy Verified 09/16/23 19:07 Physical Exam Vitals: Vital Signs Temp Pulse Resp BP Pulse Ox 09/16/23 22:00 95 16 138/87 94 L 09/16/23 21:00 98 16 127/73 95 09/16/23 20:00 97 18 117/71 95 09/16/23 19:56 89 16 117/71 93 L 09/16/23 19:03 97.8 F 100 20 109/68 95 Intake and Output 09/16/23 09/16/23 09/17/23 14:59 22:59 06:59 Other: Weight 99.79 kg Results CBC & Chem 7: 09/16/23 19:44 09/16/23 19:44 Labs: Abnormal Lab Results - Last 24 Hours (Table) 09/16/23 09/16/23 09/16/23 Range/Units 19:44 19:44 19:44 WBC 13.7 H (3.8-10.6) k/uL MCV 101.3 H (80.0-100.0) fL Neutrophils # 12.0 H (1.3-7.7) k/uL Lymphocytes # 0.9 L (1.0-4.8) k/uL Potassium 3.3 L (3.5-5.1) mmol/L Chloride 111 H (98-107) mmol/L Glucose 145 H (74-99) mg/dL Plasma Lactic Acid Maik 4.1 H* (0.7-2.0) mmol/L Phosphorus 2.2 L (2.5-4.5) mg/dL Total Bilirubin 2.5 H (0.2-1.3) mg/dL AST 426 H (14-36) U/L ALT 50 H (4-34) U/L Creatine Kinase 34843 H* (30-135) U/L Troponin I (0.000-0.034) ng/mL 09/16/23 09/16/23 Range/Units 19:44 23:00 WBC (3.8-10.6) k/uL MCV (80.0-100.0) fL Neutrophils # (1.3-7.7) k/uL Lymphocytes # (1.0-4.8) k/uL Potassium (3.5-5.1) mmol/L Chloride (98-107) mmol/L Glucose (74-99) mg/dL Plasma Lactic Acid Maik (0.7-2.0) mmol/L Phosphorus (2.5-4.5) mg/dL Total Bilirubin (0.2-1.3) mg/dL AST (14-36) U/L ALT (4-34) U/L Creatine Kinase (30-135) U/L Troponin I 1.700 H* 1.580 H* (0.000-0.034) ng/mL
[2023-09-17] MEDS: SODIUM CHLORIDE 0.9% 1,000 ML IV STA (01:54)
[2023-09-17 07:05] LABS: HCT 41.9 % (34.0-46.0); HGB 12.9 gm/dL (11.4-16.0); Hypochromasia Marked; MCH 32.8 pg (25.0-35.0); MCHC 30.8 g/dL (31.0-37.0); Macrocytosis Moderate; Mean Platelet Volume 8.3; Platelet Count 211 k/uL (150-450); RBC 3.94 m/uL (3.80-5.40); RDW 12.5 % (11.5-15.5); WBC 14.1 k/uL (3.8-10.6)
[2023-09-17 07:12] LABS: MCV 106.6 fL (80.0-100.0)
[2023-09-17 07:26] LABS: ALT 52 U/L (4-34); AST 315 U/L (14-36); African American GFR (CKD) >90 (>60 ml/min/1.73 sqM); Albumin 3.3 g/dL (3.5-5.0); Alkaline Phosphatase 45 U/L (38-126); Anion Gap 2 mmol/L; Blood Urea Nitrogen 16 mg/dL (7-17); Calcium 8.4 mg/dL (8.4-10.2); Carbon Dioxide 25 mmol/L (22-30); Chloride 113 mmol/L (98-107); Glucose 125 mg/dL (74-99); Non-African American GFR(CKD) >90 (>60 ml/min/1.73 sqM); Potassium 3.5 mmol/L (3.5-5.1); Sodium 140 mmol/L (137-145); Total Bilirubin 1.7 mg/dL (0.2-1.3); Total Protein 5.5 g/dL (6.3-8.2)
[2023-09-17 08:02] LABS: Creatine Kinase 14215 U/L (30-135)
--- NOTE | 2023-09-17 08:36 | US ---
EXAMINATION TYPE: US abdomen limited DATE OF EXAM: 09/17/2023 COMPARISON: NONE CLINICAL INDICATION: Female, 73 years old with history of RUQ US; pain TECHNIQUE: Multiple sonographic images of the right upper quadrant are obtained. FINDINGS: EXAM MEASUREMENTS: Liver Length: 19.7 cm Gallbladder Wall: .3 cm CBD: .7 cm Right Kidney: 11.9 x 5.5 x 5.5 cm Pancreas: wnl Liver: Increased attenuation hypoechoic area 1.6 x 1.4 x 1.9 cm. Gallbladder: No stones seen Evidence for sonographic Collins's sign: No CBD: upper limits Right Kidney: No hydronephrosis or masses seen IMPRESSION: 1. No gallbladder abnormality. 2. Hepatomegaly and steatosis
[2023-09-17] MEDS: ENOXAPARIN 40 MG/0.4 ML SYRINGE SQ SCH ×2 (09:45→19:58)
--- NOTE | 2023-09-17 09:59 | P.CRDCN ---
History of Present Illness Consult date: 09/17/23 History of present illness: The patient is a pleasant 73-year-old female patient with a past medical history significant for hypertension and dyslipidemia and known aortic stenosis based on echo from 2020 as well as overweight. She presented to the hospital because she was unable to get up for about 48 hours which she was experiencing knee pain and her was unable to help her and for that reason she was down on the floor for about 2 days. She developed rhabdomyolysis. No symptoms of chest pain or chest discomfort or shortness of breath or dizziness or lightheadedness or any feeling of heart racing or fluttering or presyncope or syncope. The patient's family including her son brought her to the emergency department for further evaluation where she underwent an EKG which showed sinus mechanism with RBBB with no significant ST or T wave abnormalities and also she underwent blood work and that showed elevated liver function test and elevated CK. The patient was diagnosed with rhabdomyolysis with also the blood work revealed elevated troponin. As a mention earlier the patient did not have any symptoms of any chest pain or chest discomfort or shortness of breath and the EKG did not show any ischemic changes. I would consider a conservative medical approach with risk stratification including obtaining an echocardiogram to assess LV function and for any wall motion abnormalities. The physical examination is remarkable for regular rhythm with a systolic murmur at the right upper sternal border and clear breathing sounds bilaterally no edema was noted in the lower extremities Assessment Rhabdomyolysis Evidence of myocardial injury with no evidence of ischemia clinically or by EKG Multiple comorbid conditions including hypertension and dyslipidemia Valvular heart disease with aortic stenosis Plan The patient is on Lovenox we will continue diet and increase the dose to be at therapeutic dose Add aspirin to the current medical regimen Add small dose of beta-joanna to the current medical regimen She cannot be on any statin giving the elevated liver function test Obtain an echo for risk stratification Follow-up with the patient Past Medical History Past Medical History: Hyperlipidemia, Hypertension History of Any Multi-Drug Resistant Organisms: None Reported Past Surgical History: Tonsillectomy Past Psychological History: No Psychological Hx Reported Smoking Status: Never smoker Past Alcohol Use History: Occasional Past Drug Use History: None Reported Medications and Allergies Home Medications Medication Instructions Recorded Confirmed Type Aspirin EC [Ecotrin Low Dose] 81 mg PO DAILY 09/17/23 09/17/23 History Atorvastatin [Lipitor] 40 mg PO HS 09/17/23 09/17/23 History Furosemide [Lasix] 10 mg PO DAILY PRN 09/17/23 09/17/23 History amLODIPine [Norvasc] 5 mg PO DAILY 09/17/23 09/17/23 History diphenhydrAMINE HCL [Benadryl] 50 mg PO BID 09/17/23 09/17/23 History ramipriL 10 mg PO BID 09/17/23 09/17/23 History Allergies Allergy/AdvReac Type Severity Reaction Status Date / Time Beef Containing Products AdvReac Diarrhea Verified 09/17/23 09:38 [Beef] Physical Exam Vitals: Vital Signs Temp Pulse Resp BP Pulse Ox 09/17/23 09:44 98.1 F 78 18 136/52 94 L 09/17/23 06:53 82 18 129/87 94 L 09/17/23 04:30 16 09/17/23 03:52 97.7 F 09/17/23 03:00 86 18 106/61 93 L 09/17/23 02:00 88 16 135/80 93 L 09/17/23 01:00 90 16 142/92 95 09/17/23 00:00 90 16 144/82 94 L 09/16/23 23:00 94 18 134/89 94 L 09/16/23 22:00 95 16 138/87 94 L 09/16/23 21:00 98 16 127/73 95 09/16/23 20:00 97 18 117/71 95 09/16/23 19:56 89 16 117/71 93 L 09/16/23 19:03 97.8 F 100 20 109/68 95 Intake and Output 09/16/23 09/17/23 09/17/23 22:59 06:59 14:59 Other: Weight 99.79 kg Results 09/17/23 06:48 09/17/23 06:48 Cardiac Enzymes 09/16/23 09/16/23 09/16/23 Range/Units 19:44 19:44 23:00 AST 426 H (14-36) U/L Troponin I 1.700 H* 1.580 H* (0.000-0.034) ng/mL 09/17/23 Range/Units 06:48 AST 315 H (14-36) U/L Troponin I (0.000-0.034) ng/mL Coagulation 09/16/23 Range/Units 19:44 PT 11.5 (10.0-12.5) sec APTT 22.0 (22.0-30.0) sec CBC 09/16/23 09/17/23 Range/Units 19:44 06:48 WBC 13.7 H 14.1 H (3.8-10.6) k/uL RBC 4.52 3.94 (3.80-5.40) m/uL Hgb 14.8 12.9 (11.4-16.0) gm/dL Hct 45.8 41.9 (34.0-46.0) % Plt Count 236 211 (150-450) k/uL Comprehensive Metabolic Panel 09/16/23 09/17/23 Range/Units 19:44 06:48 Sodium 142 140 (137-145) mmol/L Potassium 3.3 L 3.5 (3.5-5.1) mmol/L Chloride 111 H 113 H (98-107) mmol/L Carbon Dioxide 23 25 (22-30) mmol/L BUN 16 16 (7-17) mg/dL Creatinine 0.69 0.51 L (0.52-1.04) mg/dL Glucose 145 H 125 H (74-99) mg/dL Calcium 9.7 8.4 (8.4-10.2) mg/dL AST 426 H 315 H (14-36) U/L ALT 50 H 52 H (4-34) U/L Alkaline Phosphatase 57 45 (38-126) U/L Total Protein 6.9 5.5 L (6.3-8.2) g/dL Albumin 4.4 3.3 L (3.5-5.0) g/dL Current Medications Generic Name Dose Route Start Last Admin Trade Name Freq PRN Reason Stop Dose Admin Enoxaparin Sodium 40 mg 09/17/23 21:00 Enoxaparin 40 Mg/0.4 Ml Syringe SQ BID [facility] Miscellaneous Information 1 each 09/16/23 20:36 Potassium Replacement Protocol 1 Each Misc MISCELLANE DAILY PRN Per Protocol Protocol Miscellaneous Information 1 each 09/16/23 20:57 Phosphorus Replacement Protoco 1 Each Misc MISCELLANE DAILY PRN Per Protocol Protocol Naloxone HCl 0.2 mg 09/16/23 22:15 Naloxone 0.4 Mg/Ml 1 Ml Vial IV Q2M PRN Opioid Reversal Intake and Output 09/16/23 09/17/23 09/17/23 22:59 06:59 14:59 Other: Weight 99.79 kg 09/17/23 06:48 09/17/23 06:48
[2023-09-17] MEDS: METOPROLOL TARTRATE 12.5 MG TAB PO SCH (11:17)
--- NOTE | 2023-09-17 13:26 | P.PN ---
Subjective Progress Note Date: 09/17/23 Hospital course Patient is a 73-year-old female with a PMH of hypertension hyperlipidemia who lives at home with her was brought in via EMS for generalized weakness. Patient states that she got down to the floor to pick something up and was then unable to stand up 2 days ago. She states that she was on the floor for over 24 hours. Her then was able to get her into a low-lying chair where she stayed in till her son came in and called EMS as she appeared dehydrated. In the ED Chest x-ray in the emergency room was unremarkable with bilateral knee x- rays also unremarkable. Laboratory evaluation was remarkable for creatinine kinase 25,496, troponin 1.7, lactic acid 4.1, total bilirubin 2.5, AST 426, ALT 50, BUN 16, creatinine 0.69, with potassium 3.3, and WBC count 13.7 with MCV 101.3. Patient was admitted to the medicine service. Patient was started on IV fluids. Her CK levels are improving. Her liver enzymes are also improving. Patient seen by cardiology for the elevated troponin. Cardiology ordered echocardiogram and started the patient on aspirin and beta-joanna. Patient also had a liver ultrasound that showed hepatic steatosis. Subjective Patient seen this morning. She is denying any acute complaints. No other acute issues overnight. 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 Echocardiogram pending Cardiology started patient on therapeutic dose of Lovenox Lactic acidosis Resolved Hypokalemia Resolved Acute on chronic debility PT OT consult Transaminitis likely due to rhabdomyolysis Improving Liver ultrasound shows hepatic steatosis DVT prophylaxis: Lovenox DNR/DNI Objective - Vital Signs Vital signs: Vital Signs Temp 98.2 F 09/17/23 12:39 Pulse 74 09/17/23 12:39 Resp 16 09/17/23 12:39 BP 157/84 09/17/23 12:39 Pulse Ox 95 09/17/23 12:39 FiO2 Intake & Output 09/16/23 09/17/23 09/17/23 18:59 06:59 18:59 Weight 99.79 kg 99.79 kg - Labs CBC & Chem 7: 09/17/23 06:48 09/17/23 06:48 Labs: Abnormal Lab Results - Last 24 Hours (Table) 09/16/23 09/16/23 09/16/23 Range/Units 01:02 19:44 19:44 WBC 13.7 H (3.8-10.6) k/uL MCV 101.3 H (80.0-100.0) fL MCHC (31.0-37.0) g/dL Neutrophils # 12.0 H (1.3-7.7) k/uL Lymphocytes # 0.9 L (1.0-4.8) k/uL Potassium 3.3 L (3.5-5.1) mmol/L Chloride 111 H (98-107) mmol/L Creatinine (0.52-1.04) mg/dL Glucose 145 H (74-99) mg/dL Plasma Lactic Acid Maik (0.7-2.0) mmol/L Phosphorus 2.2 L (2.5-4.5) mg/dL Total Bilirubin 2.5 H (0.2-1.3) mg/dL AST 426 H (14-36) U/L ALT 50 H (4-34) U/L Creatine Kinase 98687 H* (30-135) U/L Troponin I (0.000-0.034) ng/mL Total Protein (6.3-8.2) g/dL Albumin (3.5-5.0) g/dL Urine Appearance Cloudy H (Clear) Urine Protein 1+ H (Negative) Urine Glucose (UA) Trace H (Negative) Urine Ketones Trace H (Negative) Urine Blood Large H (Negative) Ur Squamous Epith Cells 8 H (0-4) /hpf Urine Bacteria Rare H (None) /hpf Hyaline Casts 3 H (0-2) /lpf Urine Mucus Few H (None) /hpf 09/16/23 09/16/23 09/16/23 Range/Units 19:44 19:44 23:00 WBC (3.8-10.6) k/uL MCV (80.0-100.0) fL MCHC (31.0-37.0) g/dL Neutrophils # (1.3-7.7) k/uL Lymphocytes # (1.0-4.8) k/uL Potassium (3.5-5.1) mmol/L Chloride (98-107) mmol/L Creatinine (0.52-1.04) mg/dL Glucose (74-99) mg/dL Plasma Lactic Acid Maik 4.1 H* (0.7-2.0) mmol/L Phosphorus (2.5-4.5) mg/dL Total Bilirubin (0.2-1.3) mg/dL AST (14-36) U/L ALT (4-34) U/L Creatine Kinase (30-135) U/L Troponin I 1.700 H* 1.580 H* (0.000-0.034) ng/mL Total Protein (6.3-8.2) g/dL Albumin (3.5-5.0) g/dL Urine Appearance (Clear) Urine Protein (Negative) Urine Glucose (UA) (Negative) Urine Ketones (Negative) Urine Blood (Negative) Ur Squamous Epith Cells (0-4) /hpf Urine Bacteria (None) /hpf Hyaline Casts (0-2) /lpf Urine Mucus (None) /hpf 09/17/23 09/17/23 09/17/23 Range/Units 00:16 06:48 06:48 WBC 14.1 H (3.8-10.6) k/uL MCV 106.6 H D (80.0-100.0) fL MCHC 30.8 L (31.0-37.0) g/dL Neutrophils # (1.3-7.7) k/uL Lymphocytes # (1.0-4.8) k/uL Potassium (3.5-5.1) mmol/L Chloride 113 H (98-107) mmol/L Creatinine 0.51 L (0.52-1.04) mg/dL Glucose 125 H (74-99) mg/dL Plasma Lactic Acid Maik (0.7-2.0) mmol/L Phosphorus (2.5-4.5) mg/dL Total Bilirubin 1.7 H (0.2-1.3) mg/dL AST 315 H (14-36) U/L ALT 52 H (4-34) U/L Creatine Kinase 79073 H* 26054 H* (30-135) U/L Troponin I (0.000-0.034) ng/mL Total Protein 5.5 L (6.3-8.2) g/dL Albumin 3.3 L (3.5-5.0) g/dL Urine Appearance (Clear) Urine Protein (Negative) Urine Glucose (UA) (Negative) Urine Ketones (Negative) Urine Blood (Negative) Ur Squamous Epith Cells (0-4) /hpf Urine Bacteria (None) /hpf Hyaline Casts (0-2) /lpf Urine Mucus (None) /hpf
[2023-09-17] MEDS: LIDOCAINE 4% CREAM 5 GM TUBE TOPICAL PRN (17:15)
[2023-09-18 07:55] LABS: African American GFR (CKD) >90 (>60 ml/min/1.73 sqM); Anion Gap 5 mmol/L; Blood Urea Nitrogen 15 mg/dL (7-17); Calcium 8.6 mg/dL (8.4-10.2); Carbon Dioxide 26 mmol/L (22-30); Chloride 108 mmol/L (98-107); Glucose 98 mg/dL (74-99); Non-African American GFR(CKD) >90 (>60 ml/min/1.73 sqM); Potassium 3.5 mmol/L (3.5-5.1); Sodium 139 mmol/L (137-145)
[2023-09-18 08:06] LABS: HCT 37.6 % (34.0-46.0); HGB 12.1 gm/dL (11.4-16.0); Hypochromasia Moderate; MCH 33.2 pg (25.0-35.0); MCV 103.5 fL (80.0-100.0); Macrocytosis Slight; Platelet Count 190 k/uL (150-450); RBC 3.63 m/uL (3.80-5.40); RDW 12.6 % (11.5-15.5); WBC 9.6 k/uL (3.8-10.6)
[2023-09-18] MEDS: ASPIRIN 81 MG PO SCH (08:28)
[2023-09-18] MEDS: ACETAMINOPHEN TAB 325 MG TAB PO PRN (11:11)
--- NOTE | 2023-09-18 15:58 | P.PN ---
Subjective Progress Note Date: 09/18/23 Hospital course Patient is a 73-year-old female with a PMH of hypertension hyperlipidemia who lives at home with her was brought in via EMS for generalized weakness. Patient states that she got down to the floor to pick something up and was then unable to stand up 2 days ago. She states that she was on the floor for over 24 hours. Her then was able to get her into a low-lying chair where she stayed in till her son came in and called EMS as she appeared dehydrated. In the ED Chest x-ray in the emergency room was unremarkable with bilateral knee x- rays also unremarkable. Laboratory evaluation was remarkable for creatinine kinase 25,496, troponin 1.7, lactic acid 4.1, total bilirubin 2.5, AST 426, ALT 50, BUN 16, creatinine 0.69, with potassium 3.3, and WBC count 13.7 with MCV 101.3. Patient was admitted to the medicine service. Patient was started on IV fluids. Her CK levels are improving. Her liver enzymes are also improving. Patient seen by cardiology for the elevated troponin. Cardiology ordered echocardiogram and started the patient on aspirin and beta-joanna. Patient also had a liver ultrasound that showed hepatic steatosis. Subjective Patient was sitting up in the chair this morning. Her son and daughter were at bedside. Son and daughter do not feel the patient is ready to go home due to her mobility. Patient did work with physical therapy and was deemed stable to go home with home care. Son and daughter are hoping that the patient can stay another day. 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 At the time of this note patient's echocardiogram is pending Cardiology started patient on therapeutic dose of Lovenox Lactic acidosis Resolved Hypokalemia Resolved Acute on chronic debility PT OT consult -> cleared the patient to go home with home care Transaminitis likely due to rhabdomyolysis Improving Liver ultrasound shows hepatic steatosis DVT prophylaxis: Lovenox DNR/DNI Objective - Vital Signs Vital signs: Vital Signs Temp 98.5 F 09/18/23 04:00 Pulse 66 09/18/23 12:00 Resp 16 09/18/23 12:00 BP 146/72 09/18/23 12:00 Pulse Ox 94 L 09/18/23 12:00 FiO2 Intake & Output 09/17/23 09/18/23 09/18/23 18:59 06:59 18:59 Intake Total 240 222 Balance 240 222 Weight 99.79 kg Intake: Oral 240 222 Other: Voiding Method Bedside Commode Bedside Commode Bedside Commode # Voids 1 1 - Labs CBC & Chem 7: 09/18/23 06:24 09/18/23 06:24 Labs: Abnormal Lab Results - Last 24 Hours (Table) 09/18/23 09/18/23 Range/Units 06:24 06:24 RBC 3.63 L (3.80-5.40) m/uL MCV 103.5 H (80.0-100.0) fL Chloride 108 H (98-107) mmol/L Creatinine 0.47 L (0.52-1.04) mg/dL
[2023-09-18] MEDS: LOSARTAN 25 MG TAB PO SCH (16:21)
--- NOTE | 2023-09-18 17:58 | CA ---
Transthoracic Echo Report Name: Magaly Ruth Age: 73 Gender: F : 1950 Exam Date: 09/18/2023 10:18 Exam Location: [place] [facility] Ht (in): 62 Wt (lb): 220 Ordering Physician: Srinivas Cruz MD ([id number]) Attending/Referring Phys: [employer] Judge Maureen Funes RDCS Procedure CPT: Indications: elevated trop Cardiac Hx: Technical Quality: Technically difficult study Contrast 1: Definity Total Dose (mL): 2 Contrast 2: Total Dose (mL): MEASUREMENTS (Male / Female) Normal Values 2D ECHO LV Diastolic Diameter PLAX 3.9 cm 4.2 - 5.9 / 3.9 - 5.3 cm LV Systolic Diameter PLAX 2.6 cm IVS Diastolic Thickness 1.5 cm 0.6 - 1.0 / 0.6 - 0.9 cm LVPW Diastolic Thickness 1.3 cm 0.6 - 1.0 / 0.6 - 0.9 cm LV Relative Wall Thickness 0.7 RV Internal Dim ED PLAX 2.4 cm LVOT Diameter 1.7 cm LA Volume 58.3 cm??? 18 - 58 / 22 - 52 cm??? LA Volume Index 27.2 cm???/m??? 16 - 28 cm???/m??? M-MODE Aortic Root Diameter MM 3.1 cm LA Systolic Diameter MM 3.2 cm LA Ao Ratio MM 1.0 AV Cusp Separation MM 0.9 cm DOPPLER AV Peak Velocity 268.7 cm/s AV Peak Gradient 28.9 mmHg AV Mean Velocity 184.5 cm/s AV Mean Gradient 15.7 mmHg AV Velocity Time Integral 58.3 cm LVOT Peak Velocity 80.7 cm/s LVOT Peak Gradient 2.6 mmHg LVOT Velocity Time Integral 18.1 cm LVOT Stroke Volume 41.9 cm??? LVOT Stroke Volume Index 21.1 ml/m??? LVOT Cardiac Index 1232.2 cm???/min???m??? AV Area Cont Eq vti 0.7 cm??? AV Area Cont Eq pk 0.7 cm??? MV Peak Velocity 175.4 cm/s MV Peak Gradient 12.3 mmHg MV Mean Velocity 104.4 cm/s MV Mean Gradient 5.1 mmHg MV Velocity Time Integral 58.8 cm MV Area PHT 1.9 cm??? Mitral E Point Velocity 154.7 cm/s Mitral A Point Velocity 145.3 cm/s Mitral E to A Ratio 1.1 MV Deceleration Time 384.8 ms MV E' Velocity 5.6 cm/s Mitral E to MV E' Ratio 27.6 TR Peak Velocity 338.2 cm/s TR Peak Gradient 45.7 mmHg Right Ventricular Systolic Press 50.6 mmHg FINDINGS Left Ventricle Moderately increased left ventricular wall thickness. Left ventricular cavity size normal. Normal left ventricular systolic function with no obvious regional wall motion abnormalities. Left ventricular ejection fraction is estimated at 55 %. Grade 1 diastolic dysfunction. Right Ventricle Normal right ventricular size and function. Moderate to severe pulmonary hypertension. Right ventricular systolic pressure estimated at 51mm hg. Right Atrium Normal right atrial size. Left Atrium Mildly increased left atrial volume. Mitral Valve Moderate mitral annular calcification. Mitral valve thickened. [id number] mitral stenosis. Moderate mitral regurgitation. Aortic Valve Trileaflet aortic valve. Mild aortic stenosis with a peak gradient of 29 mmHg and a mean gradient of 16 mmHg. Trace aortic regurgitation. Tricuspid Valve Structurally normal tricuspid valve. Mild tricuspid regurgitation. Pulmonic Valve Structurally normal pulmonic valve. Trace pulmonic regurgitation. Pericardium No pericardial effusion. Aorta Normal size aortic root and proximal ascending aorta. 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 Nirmal Hendricks MD (Electronically Signed) Final Date: 18 September 2023 17:57
[2023-09-19 03:05] VITALS: TEMP 97.9
[2023-09-19 08:18] LABS: Basophils # (A) 0.1 k/uL (0-0.2); Basophils % (A) 1 %; Eosinophils # (A) 0.2 k/uL (0-0.7); Eosinophils % (A) 3 %; HCT 38.9 % (34.0-46.0); HGB 12.6 gm/dL (11.4-16.0); Hypochromasia Moderate; Lymphocytes # (A) 1.8 k/uL (1.0-4.8); Lymphocytes % (A) 25 %; MCH 33.2 pg (25.0-35.0); MCHC 32.2 g/dL (31.0-37.0); MCV 103.1 fL (80.0-100.0); Macrocytosis Slight; Mean Platelet Volume 8.2; Monocytes # (A) 0.4 k/uL (0-1.0); Monocytes % (A) 6 %; Neutrophils # (A) 4.6 k/uL (1.3-7.7); Neutrophils % (A) 64 %; Platelet Count 185 k/uL (150-450); RBC 3.78 m/uL (3.80-5.40); RDW 12.7 % (11.5-15.5); WBC 7.2 k/uL (3.8-10.6)
[2023-09-19 08:29] VITALS: RESP 16
[2023-09-19 08:37] LABS: ALT 63 U/L (4-34); AST 171 U/L (14-36); African American GFR (CKD) >90 (>60 ml/min/1.73 sqM); Albumin 3.4 g/dL (3.5-5.0); Alkaline Phosphatase 59 U/L (38-126); Anion Gap 4 mmol/L; Blood Urea Nitrogen 13 mg/dL (7-17); Calcium 8.4 mg/dL (8.4-10.2); Carbon Dioxide 26 mmol/L (22-30); Chloride 106 mmol/L (98-107); Glucose 92 mg/dL (74-99); Non-African American GFR(CKD) >90 (>60 ml/min/1.73 sqM); Potassium 3.5 mmol/L (3.5-5.1); Sodium 136 mmol/L (137-145); Total Bilirubin 1.1 mg/dL (0.2-1.3); Total Protein 5.6 g/dL (6.3-8.2)
--- NOTE | 2023-09-19 12:15 | P.DS ---
Providers Date of admission: 09/18/23 14:14 Expected date of discharge: 09/19/23 Attending physician: Fatimah Sanchez MD Consults: 09/17/23 01:38 Consult Physician Urgent Consulting Provider: Srinvias Cruz Consult Reason/Comments: Elev troponin Do you want consulting provider notified?: Yes Primary care physician: [facility] Course: Discharge Diagnosis: Acute rhabdomyolysis Leukocytosis Hypokalemia Lactic acidosis Dehydration Transaminitis secondary to acute rhabdomyolysis Elevated troponin secondary to acute rhabdomyolysis Hospital Course: 73-year-old female with a PMH of hypertension hyperlipidemia who lives at home with her was brought in via EMS for generalized weakness. Chest x-ray in the emergency room was unremarkable with bilateral knee x-rays also unremarkable. Laboratory evaluation was remarkable for creatinine kinase 25,496, troponin 1.7, lactic acid 4.1, total bilirubin 2.5, AST 426, ALT 50, BUN 16, creatinine 0.69, with potassium 3.3, and WBC count 13.7 with MCV 101.3. EKG showed no ST segment elevations, normal sinus rhythm with right bundle branch block. Patient was also evaluated by cardiology. Echocardiogram showed preserved LV systolic function, moderate to severe pulmonary hypertension, mild aortic stenosis. Patient was started on IV fluids, diuretics were held. CK down trended. Transaminases also down trended. No active chest pain. Cardiology added beta-joanna and losartan. No evidence of renal injury. Patient being discharged home with home care. Patient seen and examined at bedside. Vital signs reviewed and stable. General: Nontoxic, no distress, appears at stated age, morbidly obese Derm: Warm, dry Head: Atraumatic, normocephalic, symmetric Eyes: EOMI, no lid lag, anicteric sclera Mouth: No lip lesion, mucus membranes moist Cardiovascular: S1S2 reg, no murmur Lungs: CTA bilateral, no rhonchi, no rales, no accessory muscle use Abdominal: Soft, nontender to palpation, no guarding, no appreciable organomegaly Ext: No gross muscle atrophy, no edema, no contractures Neuro: CN II-XI grossly intact, no focal neuro deficits Psych: Alert, oriented, appropriate affect A total of 33 minutes of time were spent preparing this complex discharge summary. Patient was discharged on 09/19/2023 at 1140. Patient Condition at Discharge: Stable Plan - Discharge Summary Discharge Rx Participant: No New Discharge Prescriptions: New Losartan [Cozaar] 25 mg PO DAILY #90 tab Metoprolol Tartrate [Lopressor] 12.5 mg PO BID #90 tab Continue diphenhydrAMINE HCL [Benadryl] 50 mg PO BID Atorvastatin [Lipitor] 40 mg PO HS Aspirin EC [Ecotrin Low Dose] 81 mg PO DAILY Discontinued Furosemide [Lasix] 10 mg PO DAILY PRN PRN Reason: LEG Edema ramipriL 10 mg PO BID amLODIPine [Norvasc] 5 mg PO DAILY Discharge Medication List Aspirin EC [Ecotrin Low Dose] 81 mg PO DAILY 09/17/23 [History] Atorvastatin [Lipitor] 40 mg PO HS 09/17/23 [History] diphenhydrAMINE HCL [Benadryl] 50 mg PO BID 09/17/23 [History] Losartan [Cozaar] 25 mg PO DAILY #90 tab 09/19/23 [Rx] Metoprolol Tartrate [Lopressor] 12.5 mg PO BID #90 tab 09/19/23 [Rx] Follow up Appointment(s)/Referral(s): Cody Paul MD [Primary Care Provider] - 1-2 days Patient Instructions/Handouts: Rhabdomyolysis (DC) Activity/Diet/Wound Care/Special Instructions: Please see your PCP. Discharge/Stand Alone Forms: Who Do I Call?, Adult Foster Custodial List, Assisted Living Facilities, Help In The Home Discharge Disposition: HOME WITH HOME HEALTH SERVICES
[2023-09-19 12:21] VITALS: BP 164/72; PULSE 65
--- NOTE | 2023-09-19 23:21 | P.PN ---
Subjective Progress Note Date: 09/18/23 The patient is a pleasant 73-year-old female patient with a past medical history significant for hypertension and dyslipidemia and known aortic stenosis based on echo from 2020 as well as overweight. She presented to the hospital because she was unable to get up for about 48 hours which she was experiencing knee pain and her was unable to help her and for that reason she was down on the floor for about 2 days. She developed rhabdomyolysis. No symptoms of chest pain or chest discomfort or shortness of breath or dizziness or lightheadedness or any feeling of heart racing or fluttering or presyncope or syncope. The patient's family including her son brought her to the emergency department for further evaluation where she underwent an EKG which showed sinus mechanism with RBBB with no significant ST or T wave abnormalities and also she underwent blood work and that showed elevated liver function test and elevated CK. The patient was diagnosed with rhabdomyolysis with also the blood work revealed elevated troponin. As a mention earlier the patient did not have any symptoms of any chest pain or chest discomfort or shortness of breath and the EKG did not show any ischemic changes. I would consider a conservative medical approach with risk stratification including obtaining an echocardiogram to assess LV function and for any wall motion abnormalities. The physical examination is remarkable for regular rhythm with a systolic murmur at the right upper sternal border and clear breathing sounds bilaterally no edema was noted in the lower extremities September 18, 2023 Patient is seen and examined at bedside this a.m. Patient's renal function is improving and evidence of rhabdomyolysis is improving. Hemodynamically stable, no concerns of arrhythmia on telemetry monitoring Assessment Rhabdomyolysis Evidence of myocardial injury with no evidence of ischemia clinically or by EKG Multiple comorbid conditions including hypertension and dyslipidemia Valvular heart disease with aortic stenosis Plan The patient is on Lovenox we will continue diet and increase the dose to be at therapeutic dose Add aspirin to the current medical regimen Add small dose of beta-joanna to the current medical regimen She cannot be on any statin giving the elevated liver function test Obtain an echo for risk stratification Follow-up with the patient Objective - Vital Signs Vital signs: Vital Signs Temp 97.9 F 09/18/23 20:00 Pulse 65 09/19/23 12:00 Resp 16 09/19/23 12:00 BP 164/72 09/19/23 12:00 Pulse Ox 94 L 09/19/23 12:00 FiO2 Intake & Output 09/19/23 09/19/23 09/20/23 06:59 18:59 06:59 Intake Total 118 Balance 118 Weight 104 kg Intake: Oral 118 Other: Voiding Method Toilet Toilet # Voids 2 3 - Labs CBC & Chem 7: 09/19/23 06:47 09/19/23 06:47 Labs: Abnormal Lab Results - Last 24 Hours (Table) 09/18/23 09/19/23 09/19/23 Range/Units 06:24 06:47 06:47 RBC 3.78 L (3.80-5.40) m/uL MCV 103.1 H (80.0-100.0) fL Sodium 136 L (137-145) mmol/L Creatinine 0.44 L (0.52-1.04) mg/dL AST 171 H (14-36) U/L ALT 63 H (4-34) U/L Total Creatine Kinase 4740 H (30-223) u/L Total Protein 5.6 L (6.3-8.2) g/dL Albumin 3.4 L (3.5-5.0) g/dL
--- NOTE | 2023-09-19 23:22 | P.PN ---
Subjective Progress Note Date: 09/19/23 The patient is a pleasant 73-year-old female patient with a past medical history significant for hypertension and dyslipidemia and known aortic stenosis based on echo from 2020 as well as overweight. She presented to the hospital because she was unable to get up for about 48 hours which she was experiencing knee pain and her was unable to help her and for that reason she was down on the floor for about 2 days. She developed rhabdomyolysis. No symptoms of chest pain or chest discomfort or shortness of breath or dizziness or lightheadedness or any feeling of heart racing or fluttering or presyncope or syncope. The patient's family including her son brought her to the emergency department for further evaluation where she underwent an EKG which showed sinus mechanism with RBBB with no significant ST or T wave abnormalities and also she underwent blood work and that showed elevated liver function test and elevated CK. The patient was diagnosed with rhabdomyolysis with also the blood work revealed elevated troponin. As a mention earlier the patient did not have any symptoms of any chest pain or chest discomfort or shortness of breath and the EKG did not show any ischemic changes. I would consider a conservative medical approach with risk stratification including obtaining an echocardiogram to assess LV function and for any wall motion abnormalities. The physical examination is remarkable for regular rhythm with a systolic murmur at the right upper sternal border and clear breathing sounds bilaterally no edema was noted in the lower extremities September 18, 2023 Patient is seen and examined at bedside this a.m. Patient's renal function is improving and evidence of rhabdomyolysis is improving. Hemodynamically stable, no concerns of arrhythmia on telemetry monitoring Assessment Rhabdomyolysis Evidence of myocardial injury with no evidence of ischemia clinically or by EKG Multiple comorbid conditions including hypertension and dyslipidemia Valvular heart disease with aortic stenosis Echocardiogram showed preserved LV systolic function, moderate to severe pulm hypertension, moderate mitral annular calcification, mild aortic stenosis Plan Continue aspirin and low-dose beta-joanna She cannot be on any statin giving the elevated liver function test Patient is otherwise stable from cardiovascular standpoint. Patient can be discharged from cardiovascular standpoint. Cardiology will sign off. Objective - Vital Signs Vital signs: Vital Signs Temp 97.9 F 09/18/23 20:00 Pulse 65 09/19/23 12:00 Resp 16 09/19/23 12:00 BP 164/72 09/19/23 12:00 Pulse Ox 94 L 09/19/23 12:00 FiO2 Intake & Output 09/19/23 09/19/23 09/20/23 06:59 18:59 06:59 Intake Total 118 Balance 118 Weight 104 kg Intake: Oral 118 Other: Voiding Method Toilet Toilet # Voids 2 3 - Labs CBC & Chem 7: 09/19/23 06:47 09/19/23 06:47 Labs: Abnormal Lab Results - Last 24 Hours (Table) 09/18/23 09/19/23 09/19/23 Range/Units 06:24 06:47 06:47 RBC 3.78 L (3.80-5.40) m/uL MCV 103.1 H (80.0-100.0) fL Sodium 136 L (137-145) mmol/L Creatinine 0.44 L (0.52-1.04) mg/dL AST 171 H (14-36) U/L ALT 63 H (4-34) U/L Total Creatine Kinase 4740 H (30-223) u/L Total Protein 5.6 L (6.3-8.2) g/dL Albumin 3.4 L (3.5-5.0) g/dL
== END 2023-09-19 17:32 | disposition home health service (06) | DRG 557 ==
LOC: EC 18:55 → 3SCARD 21:37 → OBSVTOIN 09-18 14:14
PROVIDERS: ADMIT Internal Medicine; ATTEND Internal Medicine
DX: M62.82 Rhabdomyolysis (principal); I21.A1 Myocardial infarction type 2; E87.20 Acidosis, unspecified; E87.6 Hypokalemia; D72.829 Elevated white blood cell count, unspecified; R53.81 Other malaise; G72.89 Other specified myopathies; W19.XXXA Unspecified fall, initial encounter; E78.5 Hyperlipidemia, unspecified; E86.0 Dehydration; I08.0 Rheumatic disorders of both mitral and aortic valves; I10 Essential (primary) hypertension; I27.20 Pulmonary hypertension, unspecified; I45.10 Unspecified right bundle-branch block; R74.01 Elevation of levels of liver transaminase levels; K76.0 Fatty (change of) liver, not elsewhere classified; Z66 Do not resuscitate; Z79.82 Long term (current) use of aspirin; Z79.899 Other long term (current) drug therapy; Z91.014 Allergy to mammalian meats
CPT/HCPCS: 36415; 71046; 76705; 80048; 80053; 81001; 82550; 82552; 83605; 83735; 84100; 84484; 85025; 85027; 85610; 85730; 93005; 93306; 96361; 96374; 99285